=== PATIENT | female | born 1955 | race Caucasian/White ===

== ENCOUNTER → 2020-05-04 | Outpatient (CLI) | payer OTHER ==
[~2020-05-04] VITALS: Ht 157.5 cm; Wt 77.1 kg
== END ==
LOC: OPSV 10:47
DX: M81.0 Age-related osteoporosis without current pathological fracture (principal); Z78.0 Asymptomatic menopausal state
CPT/HCPCS: 96365; J3489

== ENCOUNTER → 2021-09-14 | Outpatient (CLI) | payer OTHER ==
[~2021-09-14] VITALS: Ht 156.2 cm; Wt 79.4 kg
== END ==
LOC: OPSV 11:14
DX: M81.0 Age-related osteoporosis without current pathological fracture (principal)
CPT/HCPCS: 96365; J3489

== ENCOUNTER 2021-11-18 20:12 | Emergency (ER) | payer OTHER ==
[2021-11-18 22:06] LABS: HEMOGLOBIN 13.9 gm/dl (12.3-15.3); RED BLOOD COUNT 4.63 M/UL (4.00-5.10); WHITE BLOOD COUNT 14.5 K/UL (4.5-11.0)
== END 2021-11-19 06:05 | disposition home or self-care (01) ==
LOC: ER1 20:12
PROVIDERS: Physician Assistant
DX: R20.2 Paresthesia of skin (principal); E78.5 Hyperlipidemia, unspecified; E03.9 Hypothyroidism, unspecified; R29.700 NIHSS score 0; Z88.8 Allergy status to other drugs, medicaments and biological substances
CPT/HCPCS: 70450; 71045; 80053; 82550; 82553; 83874; 84484; 85025; 93005; 99284

== ENCOUNTER → 2021-11-20 | Outpatient (CLI) | payer OTHER | LOC: RAD 15:33 | DX: R91.8 Other nonspecific abnormal finding of lung field (principal) | CPT/HCPCS: 71046 ==

== ENCOUNTER → 2021-12-14 | Outpatient (CLI) | payer OTHER | LOC: US 09:13 → MRI 09:30 → US 09:30 → MRI 10:00 | DX: R20.0 Anesthesia of skin (principal); R09.89 Other specified symptoms and signs involving the circulatory and respiratory systems; I10 Essential (primary) hypertension; M81.0 Age-related osteoporosis without current pathological fracture; E78.2 Mixed hyperlipidemia | CPT/HCPCS: 70553; 93880; A9577 ==